=== PATIENT | female | born 1960 | race Caucasian/White ===

== ENCOUNTER → 2020-12-31 10:35 | Outpatient (BNVA) | payer OTHER, SELFPAY | PROVIDERS: PCP Internal Medicine; Visit Provider Hospitalist ==

== ENCOUNTER 2021-12-01 10:37 | Outpatient (REF) | payer OTHER, SELFPAY ==
--- NOTE | 2021-12-01 14:08 | PFT_ITS ---
INDICATION: Dyspnea. SPIROMETRY: FEV1 to FVC of 78% with FEV1 of 2.31 L, which is 91% predicted, an FVC of 2.95 L, which is 90% predicted. No significant response to bronchodilators noted. Of note, the [id number] down to 60% predicted prior to bronchodilators. Maximal voluntary ventilation 92% predicted. LUNG VOLUMES: Total lung capacity 101% predicted. DIFFUSION CAPACITY: DLCO 81% predicted. COMPARISONS: None available. INTERPREATATION: No obstructive nor restrictive ventilatory defects identified. No significant response to bronchodilators noted. However, the patient does have some evidence of small airways disease. Normal maximum voluntary ventilation. Lung volumes within normal limits, and the patient has a low normal diffusion capacity. Clinical correlation warranted. MD SYLVESTER Dobson/MODL / [id number]
== END 2021-12-01 10:38 | disposition home or self-care (01) ==
LOC: HO.RESP 10:37
PROVIDERS: PCP Internal Medicine; Visit Provider Hospitalist
DX: R91.8 Other nonspecific abnormal finding of lung field (principal); R06.00 Dyspnea, unspecified
CPT/HCPCS: 94060; 94727; 94729

== ENCOUNTER → 2021-12-25 09:58 | Outpatient (BNVA) | payer OTHER, SELFPAY | PROVIDERS: PCP Internal Medicine; Visit Provider Hospitalist | DX: J44.9 Chronic obstructive pulmonary disease, unspecified (principal) ==

== ENCOUNTER → 2023-02-10 13:50 | Outpatient (BNVA) | payer OTHER, SELFPAY | PROVIDERS: PCP Internal Medicine; Visit Provider Hospitalist | DX: J45.40 Moderate persistent asthma, uncomplicated (principal); R91.8 Other nonspecific abnormal finding of lung field; Z23 Encounter for immunization | CPT/HCPCS: 90471; 90677 ==

== ENCOUNTER 2024-02-13 13:51 | Outpatient (AMB) | payer OTHER, SELFPAY ==
[2024-02-13 13:57] VITALS: PULSE 75; O2SAT 95; BMI 24.9
--- NOTE | 2024-02-13 13:57 | MHC.OFFVIS ---
Vital Signs 02/13/24 13:57 Height 5 ft 4 in Weight 145 lb BMI 24.9 Pulse 75 Pulse Source Pulse Oximeter Pulse Oximetry (%) 95 Oxygen Delivery Method Room Air Intake Visit Reasons: COPD Allergies amoxicillin Allergy (Severe, Verified 02/13/24 13:59) Rash/Itch metaxalone [Skelaxin] Allergy (Severe, Verified 02/13/24 13:59) Itching penicillin G Allergy (Severe, Verified 02/13/24 13:59) Rash/Itch Clindamycin HCl Allergy (Severe, Uncoded 02/13/24 13:59) Godfrey/Itch Erythromycin Allergy (Severe, Uncoded 02/13/24 13:59) GI Upset HPI Comments Details: The patient is a 63 y/o woman with a history of dyspnea in addition to small airway disease. Also had a history of pulmonary nodules. Her last CT scan was from March 2018 demonstrating stable pulmonary nodules. She was supposed to have a repeat CT scan prior to this visit. Therefore, I will submit another order for repeat CAT scan. In the meantime the patient continues her dyspnea symptoms. Mainly with activity. Moderate in severity. She cannot tolerate multiple inhalers: Albuterol causes significant side effects, muscarinic antagonist anticholinergics she cannot tolerate due to elevated eye pressures. She cannot tolerate steroids because of also adverse reactions. In the office we did do spirometry demonstrating concavity to the expiratory limb suggesting of an airway obstruction. Therefore, we did perform a Xopenex nebulized treatment which she tolerated she did feel little improvement. Therefore, Xopenex appears to be the only medication she can tolerate for her respiratory symptoms. 02/2020 the patient is here for pulmonary follow-up visit. Overall she is doing about the same. She did get the Xopenex but only used it for a day or so. She had a sick family member that to priority. She did have a pulmonary function studies which reviewed demonstrating again no definitive obstructive nor restrictive ventilatory defect. However, she did have some evidence of small airways disease. We also reviewed her CT scan from [facility] demonstrating stable pulmonary nodules for couple years. 12/31/2020 the patient is here for pulmonary follow-up visit. She continues to have significant dyspnea with minimal activity. Moderate severity. She did try the Xopenex inhaler but still gave her tremulousness and feeling jittery. She did not like the feeling. She has not use it since. She feels that the shortness of breath does not limit her activities of daily living in her quality of life. Her pulmonary function studies consistent with small airways disease. However, she has not had any recent pulmonary function studies and therefore they have to be repeated. In addition to that she does have pulmonary nodules last checked in 2018. Based on the fact the patient continues to be symptomatic with significant shortness of breath and cough will request a repeat CT scan of the chest to assess the pulmonary nodules. 12/25/2021 the patient is here for a pulmonary follow-up visit. Overall she is doing relatively well. She has not had to use her rescue inhaler. In addition to that she stop the QVAR because was not effective and was causing her some irritation and adverse effects. She did undergo pulmonary function studies which we personally reviewed. Still demonstrating some small airways disease. the patient is reluctant to use any medications. She did state Xopenex nebulize solution while the pulmonary function study in made her very shaky. I did explain to her that if she does use the inhaler it will be much less amount of the medication and she should tolerated well. She does state to 1 puff at a time. If she does need an alternative bronchodilator she can consider a short-acting muscarinic antagonist. In addition the patient did have a CT scan of the chest done in November 2021. No significant changes in the pulmonary nodules after 3 years of follow-up. Therefore appeared to be benign. No additional testing is warranted at this time. At this point will follow-up in 1 year if the patient develops any worsening issues she is to call the office for an earlier evaluation. 02/10/2023 the patient is here for pulmonary follow-up visit. Overall the patient is doing well. She does use her inhalers as prescribed. Does not require short-acting beta agonist. The patient is otherwise without any other complaints. We did review her last CT scan of the chest demonstrating stable pulmonary nodules. the nodules on the calcified consistent with granulomas. For that reason will going to request a T spot with her blood work to make sure that she does not have any evidence of latent tuberculosis. The last time that she had a PPD was probably about more than 10 years ago and was negative per the patient. Otherwise patient is without any other complaints. She will get her Prevnar 20 vaccine before she goes home. 02/13/2024 the patient is here for a pulmonary follow-up visit. Overall the patient has been doing well. She does have a Xopenex inhaler. She has used it a few times since last year. We did review her last CT scan of the chest. The patient has numerous pulmonary nodules. Clinically the patient is doing well plan to repeat the CT scan at least 1 more time in 11/25/2024 to make sure the stability of the nodules. Otherwise if the patient develops any worsening symptoms we can always request a CT scan earlier basis. If the patient has any issues she will call. Otherwise follow-up after her CT scan sometime this spring or early summer of 2024. [facility] Medical History (Updated 12/31/20 @ 20:28 by Wilfredo Benz MD) Asthma Pulmonary nodules Social History (Updated 12/31/20 @ 10:52 by NILS Long) Patient Tobacco Use Status: Never used Tobacco Review of Systems Const Denies night sweats ENT Denies change in voice, Denies lip swelling, Denies mouth pain, Reports nasal congestion, Reports nasal discharge and Denies tongue swelling Card Denies chest pain and Denies dyspnea on exertion Resp Reports cough and Denies dyspnea on exertion GI Denies abdominal pain Musc Denies no additional complaints Neuro Denies Neuro-related abnormal movements Psych Denies no additional complaints Gianluca/Lymph Denies easy bleeding and Denies lymphadenopathy Aller/Immun Denies lip swelling and Denies tongue swelling Physical Exam Vital Signs: Last Vital Signs Pulse 75 02/13/24 13:57 Pulse Ox 95 02/13/24 13:57 Oxygen Delivery Method Room Air 02/13/24 13:57 BMI result Body Mass Index 24.9 Const General: alert Eyes Pupils: Equal, round and reactive pupils present Neck Neck: Yes normal visual inspection, Yes full ROM and Yes no lymphadenopathy Chest Chest palpation & inspection: normal inspection of the chest Resp Auscultation: clear to auscultation bilaterally Cardio Rate: regular rate Rhythm: regular rhythm Heart sounds: S1 normal heart sound present and S2 normal heart sound present GI Palpation (GI): Soft to palpation and nontender Auscultation: normal bowel sounds Skin General skin exam: rashes and/or lesions noted Neuro Cranial nerves: Yes Equal, round and reactive pupils present Assessment & Plan Assessment & Plan (1) Asthma: Code(s): J45.909 - Unspecified asthma, uncomplicated Category: Medical Qualifiers: Asthma complication type: uncomplicated Asthma persistence: persistent Asthma severity: moderate Qualified Code(s): J45.40 - Moderate persistent asthma, uncomplicated (2) Pulmonary nodules: Code(s): R91.8 - Other nonspecific abnormal finding of lung field Category: Medical Plan XOpenex HFA as needed Ct chest 11/2024 F/U 1 yr or sooner if has worsening or concerning symptoms Orders: Orders CT chest wo IV con 11/06/24 R91.8 - Other nonspecific abnormal finding of lung field Medications: New levalbuterol tartrate 45 mcg/actuation (Xopenex HFA) 2 puffs inhalation Q6H PRN 15 grams 11RF shortness of breath or wheezing 30 days J45.909 - Unspecified asthma, uncomplicated Coding Level of Care Code Est Pt Level 4 (28144) Diagnoses Moderate persistent asthma without complication J45.40 Asthma complication type: uncomplicated Asthma persistence: persistent Asthma severity: moderate Pulmonary nodules R91.8 Time Spent (min) 17
== END 2024-02-13 14:10 | disposition home or self-care (01) ==
PROVIDERS: PCP Internal Medicine; Visit Provider Hospitalist
DX: J45.40 Moderate persistent asthma, uncomplicated (principal); R91.8 Other nonspecific abnormal finding of lung field
CPT/HCPCS: 99214

== ENCOUNTER → 2024-02-13 13:51 | Outpatient (BNVA) | payer OTHER, SELFPAY | PROVIDERS: PCP Internal Medicine; Visit Provider Hospitalist ==

== ENCOUNTER 2025-06-06 10:57 | Outpatient (AMB) | payer OTHER, SELFPAY ==
[2025-06-06 11:01] VITALS: BP 130/60; PULSE 66; O2SAT 99; BMI 24.0
--- NOTE | 2025-06-06 11:01 | MHC.OFFVIS ---
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 Also had a history of pulmonary nodules. Her last CT scan was from March 2018 demonstrating stable pulmonary nodules. She was supposed to have a repeat CT scan prior to this visit. Therefore, I will submit another order for repeat CAT scan. In the meantime the patient continues her dyspnea symptoms. Mainly with activity. Moderate in severity. She cannot tolerate multiple inhalers: Albuterol causes significant side effects, muscarinic antagonist anticholinergics she cannot tolerate due to elevated eye pressures. She cannot tolerate steroids because of also adverse reactions. In the office we did do spirometry demonstrating concavity to the expiratory limb suggesting of an airway obstruction. Therefore, we did perform a Xopenex nebulized treatment which she tolerated she did feel little improvement. Therefore, Xopenex appears to be the only medication she can tolerate for her respiratory symptoms. 02/2020 the patient is here for pulmonary follow-up visit. Overall she is doing about the same. She did get the Xopenex but only used it for a day or so. She had a sick family member that to priority. She did have a pulmonary function studies which reviewed demonstrating again no definitive obstructive nor restrictive ventilatory defect. However, she did have some evidence of small airways disease. We also reviewed her CT scan from [facility] demonstrating stable pulmonary nodules for couple years. 12/31/2020 the patient is here for pulmonary follow-up visit. She continues to have significant dyspnea with minimal activity. Moderate severity. She did try the Xopenex inhaler but still gave her tremulousness and feeling jittery. She did not like the feeling. She has not use it since. She feels that the shortness of breath does not limit her activities of daily living in her quality of life. Her pulmonary function studies consistent with small airways disease. However, she has not had any recent pulmonary function studies and therefore they have to be repeated. In addition to that she does have pulmonary nodules last checked in 2019. Based on the fact the patient continues to be symptomatic with significant shortness of breath and cough will request a repeat CT scan of the chest to assess the pulmonary nodules. 12/25/2021 the patient is here for a pulmonary follow-up visit. Overall she is doing relatively well. She has not had to use her rescue inhaler. In addition to that she stop the QVAR because was not effective and was causing her some irritation and adverse effects. She did undergo pulmonary function studies which we personally reviewed. Still demonstrating some small airways disease. the patient is reluctant to use any medications. She did state Xopenex nebulize solution while the pulmonary function study in made her very shaky. I did explain to her that if she does use the inhaler it will be much less amount of the medication and she should tolerated well. She does state to 1 puff at a time. If she does need an alternative bronchodilator she can consider a short-acting muscarinic antagonist. In addition the patient did have a CT scan of the chest done in November 2021. No significant changes in the pulmonary nodules after 3 years of follow-up. Therefore appeared to be benign. No additional testing is warranted at this time. At this point will follow-up in 1 year if the patient develops any worsening issues she is to call the office for an earlier evaluation. 02/10/2023 the patient is here for pulmonary follow-up visit. Overall the patient is doing well. She does use her inhalers as prescribed. Does not require short-acting beta agonist. The patient is otherwise without any other complaints. We did review her last CT scan of the chest demonstrating stable pulmonary nodules. the nodules on the calcified consistent with granulomas. For that reason will going to request a T spot with her blood work to make sure that she does not have any evidence of latent tuberculosis. The last time that she had a PPD was probably about more than 10 years ago and was negative per the patient. Otherwise patient is without any other complaints. She will get her Prevnar 20 vaccine before she goes home. 02/13/2024 the patient is here for a pulmonary follow-up visit. Overall the patient has been doing well. She does have a Xopenex inhaler. She has used it a few times since last year. We did review her last CT scan of the chest. The patient has numerous pulmonary nodules. Clinically the patient is doing well plan to repeat the CT scan at least 1 more time in 11/25/2024 to make sure the stability of the nodules. Otherwise if the patient develops any worsening symptoms we can always request a CT scan earlier basis. If the patient has any issues she will call. Otherwise follow-up after her CT scan sometime this spring or early summer of 2024. 06/06/2025 the patient is here for pulmonary follow-up visit. Overall the patient has been doing well. Denies any shortness of breath or cough. She has not had to use her rescue inhaler. Although she is without any other active issues. The patient did get a CAT scan back in November 2024 at [facility] which I personally reviewed and also compared to the CAT scan from 2021. Has multiple pulmonary nodules both calcified and noncalcified but appeared to be very stable and unchanged for the last 3 years. Therefore no additional CAT scans at least serial CAT scans warranted. She does have a rescue inhaler as needed. She has not had to use it. If any issues arise she can always call otherwise can follow-up in a year or as needed. [facility] Medical History (Updated 12/31/20 @ 20:28 by Wilfredo Benz MD) Asthma Pulmonary nodules Social History Patient Tobacco Use Status: Never used Tobacco Review of Systems Const Denies night sweats ENT Denies change in voice, Denies lip swelling, Denies mouth pain, Reports nasal congestion, Reports nasal discharge and Denies tongue swelling Card Denies chest pain and Denies dyspnea on exertion Resp Reports cough and Denies dyspnea on exertion GI Denies abdominal pain Musc Denies no additional complaints Neuro Denies Neuro-related abnormal movements Psych Denies no additional complaints Gianluca/Lymph Denies easy bleeding and Denies lymphadenopathy Aller/Immun Denies lip swelling and Denies tongue swelling Physical Exam Vital Signs: Last Vital Signs Pulse 66 06/06/25 11:01 BP 130/60 06/06/25 11:01 Pulse Ox 99 06/06/25 11:01 Oxygen Delivery Method Room Air 06/06/25 11:01 BMI result Body Mass Index 24.0 Const General: alert Eyes Pupils: Equal, round and reactive pupils present Neck Neck: Yes normal visual inspection, Yes full ROM and Yes no lymphadenopathy Chest Chest palpation & inspection: normal inspection of the chest Resp Effort & Inspection: normal respiratory effort Auscultation: clear to auscultation bilaterally Cardio Rate: regular rate Rhythm: regular rhythm Heart sounds: S1 normal heart sound present and S2 normal heart sound present GI Palpation (GI): Soft to palpation and nontender Auscultation: normal bowel sounds Skin General skin exam: rashes and/or lesions noted Neuro Cranial nerves: Yes Equal, round and reactive pupils present Assessment & Plan Assessment & Plan (1) Asthma: Code(s): J45.909 - Unspecified asthma, uncomplicated Category: Medical Qualifiers: Asthma complication type: uncomplicated Asthma persistence: persistent Asthma severity: moderate Qualified Code(s): J45.40 - Moderate persistent asthma, uncomplicated (2) Pulmonary nodules: Code(s): R91.8 - Other nonspecific abnormal finding of lung field Category: Medical Plan XOpenex HFA as needed Ct chest 11/2024 unchanged from 2021, no additional serial imaging warranted F/U 1 yr or as needed Coding Level of Care Code Est Pt Level 4 (44068) Diagnoses Moderate persistent asthma without complication J45.40 Asthma complication type: uncomplicated Asthma persistence: persistent Asthma severity: moderate Pulmonary nodules R91.8 Time Spent (min) 17
--- OUTSIDE RECORDS SUMMARY | 2025-06-06 13:44 | XMS_ITS ---
Author Name [facility] Organization Unknown Allergies Allergen Reaction Severity Comment Documented Date Source Statu s METAXALONE RASH 05/01/2015 [facility] active AMOXICILLIN RASH [facility] CLINDAMYCIN RASH [facility] PENICILLINS RASH [facility] Problems Problem Status Onset Date Problem Type Date of Resolution Source Need for vaccination active EncounterDiagnosisAct [facility] Immunizations Vaccine Date Source Lot Number Status Flublok Trivalent Prefilled Syringe (9+ Years) 04/25/2025 [facility] [id number] completed Flucelvax Trivalent Prefille d Syringe (18+ Months) 04/25/2025 [facility] [id number] completed Flucelvax Trivalent Prefille d Syringe (18+MOS) 05/02/2024 [facility] [id number] completed Flucelvax Trivalent PFS IM; Without Preservative (18+ mos) 05/05/2023 [facility] [id number] completed Boostrix (Tdap) Prefilled Syringe 06/16/2022 [facility] B4 C44 completed Flublok Trivalent Prefilled Syringe (18+ years) 05/05/2022 [facility] [id number] completed Flublok Trivalent Prefilled Syringe (18+ years) 04/25/2021 [facility] [id number] completed Flucelvax Trivalent PFS IM; Without Preservative (18+ mos) 05/01/2020 [facility] [id number] completed Flublok Trivalent Prefilled Syringe (18+ years) 05/11/2019 [facility] [id number] completed Flucelvax Trivalent PFS IM; Without Preservative (18+ mos) 05/13/2018 [facility] [id number] completed Flulaval Quadrivalent Prefilled Syringe 05/01/2017 [facility] CCT [id number] completed Flulaval Quadrivalent MultiD ose Vial (36+ months) 05/03/2016 [facility] [id number] completed Afluria TIV Multi-dose Vial (9+ years) 05/01/2015 [facility] [id number] completed Encounters Encounter Type Encounter Reason Primary Diagnosis Location Date Ambulatory Flu Vaccine [facility] 04/25/2025 Ambulatory Flu Vaccine Encounter for immunization [facility] 05/02/2024 Care Team Organization Name Specialty Phone Email Start Date End Da te [facility] 05/02/2024
== END 2025-06-06 11:22 | disposition home or self-care (01) ==
PROVIDERS: PCP Internal Medicine; Visit Provider Hospitalist
DX: J45.40 Moderate persistent asthma, uncomplicated (principal); R91.8 Other nonspecific abnormal finding of lung field
CPT/HCPCS: 99214